=== PATIENT | male | born 1980 | race Hispanic/Latino ===

== ENCOUNTER 2020-06-02 16:27 | Emergency (ER) | payer OTHER ==
[2020-06-02 17:24] LABS: BASOPHILS % (AUTO) 0.8 % (0.0-5.0); EOSINOPHILS % (AUTO) 1.7 % (0.0-8.0); HEMATOCRIT 38.9 % (42-54); LYMPHOCYTES % (AUTO) 32.1 % (21.0-51.0); MEAN CORPUSCULAR HEMOGLOBIN 32.2 pg (27.0-33.0); MEAN CORPUSCULAR HGB CONC 34.2 g/dL (32.0-36.0); MEAN CORPUSCULAR VOLUME 94.2 fL (79-99); MONOCYTES % (AUTO) 9.6 % (3.0-13.0); NEUTROPHILS % (AUTO) 55.2 % (40.0-77.0); PLATELET COUNT (AUTO) 376 K/uL (130-400); RED BLOOD CELL COUNT(AUTO) 4.13 MIL/uL (4.50-6.20); RED CELL DISTRIBUTION WIDTH 11.9 % (11.0-15.5); WHITE BLOOD COUNT (AUTO) 8.8 K/uL (4.8-10.8)
[2020-06-02] MEDS ORDERED: CLINDAMYCIN 600 MG/D5% WATER 50 ML IV ONE (17:25)
[2020-06-02] MEDS ORDERED: ACETAMINOPHEN EXTRA STRENGTH 500 MG TABLET ONE (17:25)
[2020-06-02] MEDS ORDERED: SODIUM CHLORIDE 0.9% 1000ML 1,000 ML IV ONE (17:26)
[2020-06-02 17:34] LABS: CREATININE 1.1 mg/dL (0.5-1.5); POTASSIUM 4.4 mmol/L (3.5-5.1)
[2020-06-02 17:38] LABS: ALBUMIN 3.5 g/dL (3.5-5.0); BILIRUBIN,TOTAL 0.3 mg/dL (0.2-1.0); TOTAL PROTEIN, SERUM 7.7 g/dL (6.0-8.3)
== END 2020-06-02 18:58 | disposition home or self-care (01) ==
LOC: EDH 16:27
DX: S80.212A Abrasion, left knee, initial encounter (principal); S80.211A Abrasion, right knee, initial encounter; S90.812A Abrasion, left foot, initial encounter; L03.116 Cellulitis of left lower limb; V49.3XXA Car occupant (driver) (passenger) injured in unspecified nontraffic accident, initial encounter; Y93.89 Activity, other specified; Y92.89 Other specified places as the place of occurrence of the external cause; Y99.8 Other external cause status
CPT/HCPCS: 36415; 73630; 80053; 83605; 85025; 87040 ×2; 87070; 87076; 96365; 99284; J3490; J7030

== ENCOUNTER → 2020-06-07 | Outpatient (CLI) | payer OTHER ==
[~2020-06-07] MED LIST: HONEY 1 APPL/ML TUBE TP ONE; LIDOCAINE HCL 2% JELLY 5 ML ONE
== END | disposition home or self-care (01) ==
LOC: WHH 10:00
PROVIDERS: ATTEND Family Medicine
DX: S51.001A Unspecified open wound of right elbow, initial encounter (principal); S51.002A Unspecified open wound of left elbow, initial encounter; S81.001A Unspecified open wound, right knee, initial encounter; S81.002A Unspecified open wound, left knee, initial encounter; S91.302A Unspecified open wound, left foot, initial encounter; V29.9XXA Motorcycle rider (driver) (passenger) injured in unspecified traffic accident, initial encounter; Y93.9 Activity, unspecified; Y92.89 Other specified places as the place of occurrence of the external cause; Y99.8 Other external cause status
CPT/HCPCS: 99205; 99215

== ENCOUNTER → 2020-06-14 | Outpatient (CLI) | payer OTHER | END | disposition home or self-care (01) | LOC: WHH 08:00 | PROVIDERS: ATTEND Family Medicine | DX: S51.001D Unspecified open wound of right elbow, subsequent encounter (principal); S51.002D Unspecified open wound of left elbow, subsequent encounter; S81.001D Unspecified open wound, right knee, subsequent encounter; S81.002D Unspecified open wound, left knee, subsequent encounter; S91.302D Unspecified open wound, left foot, subsequent encounter; V29.9XXD Motorcycle rider (driver) (passenger) injured in unspecified traffic accident, subsequent encounter | CPT/HCPCS: 99214; A6022; A6209 ==

== ENCOUNTER → 2020-06-21 | Outpatient (CLI) | payer OTHER | END | disposition home or self-care (01) | LOC: WHH 08:00 | PROVIDERS: ATTEND Family Medicine | DX: S51.001D Unspecified open wound of right elbow, subsequent encounter (principal); S51.002D Unspecified open wound of left elbow, subsequent encounter; S81.001D Unspecified open wound, right knee, subsequent encounter; S81.002D Unspecified open wound, left knee, subsequent encounter; S91.302D Unspecified open wound, left foot, subsequent encounter; V29.9XXD Motorcycle rider (driver) (passenger) injured in unspecified traffic accident, subsequent encounter | CPT/HCPCS: 99214 ==

== ENCOUNTER → 2020-06-26 | Outpatient (CLI) | payer OTHER ==
[~2020-06-26] MED LIST changes: -HONEY 1 APPL/ML TUBE TP ONE; -LIDOCAINE HCL 2% JELLY 5 ML ONE; +LIDOCAINE HCL 4% LTA SOL 4 ML VIAL ONE
== END | disposition home or self-care (01) ==
LOC: WHH 08:00
PROVIDERS: ATTEND Family Medicine
DX: S51.001D Unspecified open wound of right elbow, subsequent encounter (principal); S51.002D Unspecified open wound of left elbow, subsequent encounter; S91.302D Unspecified open wound, left foot, subsequent encounter; V29.9XXD Motorcycle rider (driver) (passenger) injured in unspecified traffic accident, subsequent encounter
CPT/HCPCS: 99214; A6022; A6209

== ENCOUNTER → 2020-07-03 | Outpatient (CLI) | payer OTHER ==
[~2020-07-03] MED LIST changes: +LIDOCAINE HCL 2% JELLY 5 ML ONE; -LIDOCAINE HCL 4% LTA SOL 4 ML VIAL ONE
== END | disposition home or self-care (01) ==
LOC: WHH 08:00
PROVIDERS: ATTEND Family Medicine
DX: S51.001D Unspecified open wound of right elbow, subsequent encounter (principal); S51.002D Unspecified open wound of left elbow, subsequent encounter; S91.302D Unspecified open wound, left foot, subsequent encounter; S81.001D Unspecified open wound, right knee, subsequent encounter; S81.002D Unspecified open wound, left knee, subsequent encounter; V29.9XXD Motorcycle rider (driver) (passenger) injured in unspecified traffic accident, subsequent encounter
CPT/HCPCS: 99214; A6022; A6209

== ENCOUNTER → 2020-07-10 | Outpatient (CLI) | payer OTHER | END | disposition home or self-care (01) | LOC: WHH 08:00 | PROVIDERS: ATTEND Family Medicine | DX: S51.001D Unspecified open wound of right elbow, subsequent encounter (principal); S51.002D Unspecified open wound of left elbow, subsequent encounter; S91.002D Unspecified open wound, left ankle, subsequent encounter; S81.001D Unspecified open wound, right knee, subsequent encounter; S81.002D Unspecified open wound, left knee, subsequent encounter; V29.9XXD Motorcycle rider (driver) (passenger) injured in unspecified traffic accident, subsequent encounter | CPT/HCPCS: 99214; A6022; A6209 ==

== ENCOUNTER → 2020-07-17 | Outpatient (CLI) | payer OTHER | END | disposition home or self-care (01) | LOC: WHH 08:00 | PROVIDERS: ATTEND Family Medicine | DX: S51.001D Unspecified open wound of right elbow, subsequent encounter (principal); S51.002D Unspecified open wound of left elbow, subsequent encounter; S91.302D Unspecified open wound, left foot, subsequent encounter; V29.9XXD Motorcycle rider (driver) (passenger) injured in unspecified traffic accident, subsequent encounter | CPT/HCPCS: 99214; A6022; A6197 ==

== ENCOUNTER → 2020-07-24 | Outpatient (CLI) | payer OTHER | END | disposition home or self-care (01) | LOC: WHH 08:00 | PROVIDERS: ATTEND Family Medicine | DX: S51.001D Unspecified open wound of right elbow, subsequent encounter (principal); S51.002D Unspecified open wound of left elbow, subsequent encounter; S91.302D Unspecified open wound, left foot, subsequent encounter; V29.9XXD Motorcycle rider (driver) (passenger) injured in unspecified traffic accident, subsequent encounter | CPT/HCPCS: 99214; A6209 ==

== ENCOUNTER → 2020-07-31 | Outpatient (CLI) | payer OTHER | END | disposition home or self-care (01) | LOC: WHH 08:00 | PROVIDERS: ATTEND Family Medicine | DX: S51.001D Unspecified open wound of right elbow, subsequent encounter (principal); S51.002D Unspecified open wound of left elbow, subsequent encounter; S91.302D Unspecified open wound, left foot, subsequent encounter; V29.9XXD Motorcycle rider (driver) (passenger) injured in unspecified traffic accident, subsequent encounter | CPT/HCPCS: 99214; A6209 ==

== ENCOUNTER → 2020-08-07 | Outpatient (CLI) | payer OTHER | END | disposition home or self-care (01) | LOC: WHH 08:00 | PROVIDERS: ATTEND Family Medicine | DX: S51.001D Unspecified open wound of right elbow, subsequent encounter (principal); S51.002D Unspecified open wound of left elbow, subsequent encounter; S91.302D Unspecified open wound, left foot, subsequent encounter; V29.9XXD Motorcycle rider (driver) (passenger) injured in unspecified traffic accident, subsequent encounter | CPT/HCPCS: 99214; A6209 ×2 ==